=== PATIENT | male | born 1995 | race Two or more races ===

== ENCOUNTER 2023-01-08 11:30 | Emergency (ER) | payer MEDICAID, SELFPAY ==
[2023-01-08 11:35] VITALS: BP 160/91; PULSE 74; RESP 20; TEMP 36.8; O2SAT 98; BMI 28.2
[2023-01-08 11:57] LABS: Basophils Absolute Auto 0.1 10^3/uL (0.0-0.1); Basophils Percent Auto 0.5 % (0.2-2.0); Eosinophils Percent Auto 0.3 % (0.9-7.0); Hematocrit 46.6 % (42.0-54.0); Hemoglobin 15.5 g/dL (14.0-18.0); Immature Granulocytes Abs Auto 0.02 10^3/uL (0.00-0.03); Immature Granulocytes Pct Auto 0.2 % (0.0-0.5); Lymphocytes Absolute Auto 2.3 10^3/uL (1.2-3.8); Lymphocytes Percent Auto 20.8 % (20.5-60.0); Mean Corpuscular HGB Conc 33.3 g/dL (29.9-35.2); Mean Corpuscular Hemoglobin 28.3 pg (25.9-34.0); Mean Platelet Volume 8.8 fL (9.5-13.5); Monocytes Absolute Auto 0.6 10^3/uL (0.3-0.8); Monocytes Percent Auto 5.1 % (1.7-12.0); Neutrophils Absolute Auto 7.9 10^3/uL (1.4-6.5); Neutrophils Percent Auto 73.1 % (43.0-75.0); Platelet Count 378 10^3/uL (150-450); Red Blood Count 5.48 10^6/uL (4.70-6.10); Red Cell Distribution Width 12.4 % (11.0-15.0); White Blood Count 10.8 10^3/uL (4.0-11.0)
[2023-01-08] MEDS: FAMOTIDINE/PF 20 MG/2 ML VIAL IV (12:07)
[2023-01-08] MEDS: KETOROLAC TROMETHAMINE 30 MG/ML VIAL 15 MG IVP (12:07)
[2023-01-08] MEDS: 0.9 % SODIUM CHLORIDE 1,000 ML 1000 ML IV (12:07)
[2023-01-08] MEDS: DICYCLOMINE HCL 20 MG/2 ML VIAL 10 MG IM (12:08)
[2023-01-08] MEDS: PROCHLORPERAZINE 10 MG/2 ML VIAL IV (12:08)
[2023-01-08 12:09] LABS: Alanine Aminotransferase 26 U/L (16-63); Albumin Globulin Ratio 0.9; Albumin Level 4.3 g/dL (3.4-5.0); Alkaline Phosphatase 151 U/L (46-116); Anion Gap 17.3; Aspartate Amino Transferase 21 U/L (15-37); BUN Creatinine Ratio 12.5; Bilirubin Total 0.8 mg/dL (0.2-1.0); Calcium 9.6 mg/dL (8.5-10.1); Carbon Dioxide 24.4 mmol/L (21.0-32.0); Chloride 102 mmol/L (98-107); Estimated GFR (African America >60 (>=60); Estimated GFR (Non-African Ame >60 (>=60); Globulin 4.9 g/dL; Glucose 121 mg/dL (74-106); Potassium 3.7 mmol/L (3.5-5.1); Sodium 140 mmol/L (136-145); Total Protein 9.2 g/dL (6.4-8.2)
--- NOTE | 2023-01-08 13:00 | PC.NURSE ---
After getting pt back in room in w/c [facility] security stands by room to make sure pt remains safe. While this nurse working on another task security comes to nurse station and informs this nurse if pt is not pinked slipped pt wants to sign out AMA. AMA slip taken down to room and asked pt if he is sure this is what he wants to do. Pt states yes Pt informs this nurse again he does not feel well, again this nurse verbalized understanding and informed pt that Dr has ordered more for the nausea and vomiting. Again this nurse asked if pt is sure he wants to leave and pt again states yes . Pt signs AMA form and prior to taking out IV pt given another chance to stay for treatment but pt refused. IV SL removed, [facility] called for pt picker and security took pt to waiting room for picker. A staff member at [facility] informed of pt's treatment and AMA signing via phone conversation.
--- NOTE | 2023-01-08 13:05 | ED_ITS ---
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 Patient is coming to us with nausea vomiting not able to tolerate anything p.o. his last intake of fentanyl was the day before yesterday The patient denies any other drug use he is complaining of generalized abdominal cramping pain associated with nausea and vomiting Related Data Allergies Allergy/AdvReac Type Severity Reaction Status Date / Time No Known Drug Allergies Allergy Verified 01/08/23 11:41 Review of Systems ROS Status of ROS 10 or more systems reviewed and unremarkable except as noted in history and below Exam Narrative Exam Narrative: Nurses notes and vital signs reviewed and patient is not hypoxic. General: Well-appearing and in no apparent distress. Skin: Warm, dry, no pallor noted. No rash. Head: Normocephalic, atraumatic. Neck: Supple, non-tender. Eye: Pupils are equal, round and EOMI. No scleral icterus. Ears, Nose, Mouth, and Throat: TM are clear, no nasal mucosal hypertrophy. Oral mucosa is moist, no posterior oropharynx erythema, uvula is mid-line Cardiovascular: Regular Rate and Rhythm without murmur, gallop or rub. Respiratory: No accessory muscle use or respiratory distress. Lungs are clear to auscultation, no wheezing, rales or rhonchi Chest Wall: no tenderness Back: No midline thoracic or lumbar vertebral tenderness. No CVA tenderness Musculoskeletal: normal ROM, no calf or popliteal tenderness, no lower extremity edema/swelling GI: Abdomen is soft, non-distended. Normal bowel sounds. No masses appreciated. No tenderness to palpation. No rebound, guarding, or rigidity noted. Neurological: A&O x4. No cranial nerve dysfunction observed. No truncal ataxia. Moves all extremities. Sensation intact. Psychiatric: Cooperative and interactive. Normal mood and affect. Constitutional Vital Signs, click to edit/add: Last Vital Signs Temp 98.2 F 01/08/23 11:35 Pulse 74 01/08/23 11:35 Resp 20 01/08/23 11:35 BP 160/91 H 01/08/23 11:35 Pulse Ox 98 01/08/23 11:35 O2 Del Method Room Air 01/08/23 11:56 Course Vital Signs Vital signs: Vital Signs Temperature 98.2 F 01/08/23 11:35 Pulse Rate 74 01/08/23 11:35 Respiratory Rate 20 01/08/23 11:35 Blood Pressure 160/91 H 01/08/23 11:35 Pulse Oximetry 98 01/08/23 11:35 Oxygen Delivery Method Room Air 01/08/23 11:35 Temperature 98.2 F 01/08/23 11:35 Pulse Rate 74 01/08/23 11:35 Respiratory Rate 20 01/08/23 11:35 Blood Pressure 160/91 H 01/08/23 11:35 Pulse Oximetry 98 01/08/23 11:35 Oxygen Delivery Method Room Air 01/08/23 11:56 MDM - Nausea/Vomiting/Diarrhea MDM Narrative Medical decision making narrative: The patient examination is mostly secondary to withdrawal symptoms he did have s ome tremors and he also had nausea and vomiting upon arrival The patient CBC and chemistry showed no acute significant pathology we did provide him initially with Compazine as well as Toradol and Bentyl but he also was provided again with Zofran and Benadryl for the nausea and IV fluid while awaiting the rest of the treatment the patient decided to sign AMA The nurse taking care of the patient provided him with information and the risk factor he is putting himself at upon leaving but the patient understand he wants to leave Lab Data Labs: Lab Results 01/08/23 Range/Units 11:45 WBC 10.8 (4.0-11.0) 10^3/uL RBC 5.48 (4.70-6.10) 10^6/uL Hgb 15.5 (14.0-18.0) g/dL Hct 46.6 (42.0-54.0) % MCV 85.0 (80.0-94.0) fL MCH 28.3 (25.9-34.0) pg MCHC 33.3 (29.9-35.2) g/dL RDW 12.4 (11.0-15.0) % Plt Count 378 (150-450) 10^3/uL MPV 8.8 L (9.5-13.5) fL Neut % (Auto) 73.1 (43.0-75.0) % Lymph % (Auto) 20.8 (20.5-60.0) % [place] % (Auto) 5.1 (1.7-12.0) % Eos % (Auto) 0.3 L (0.9-7.0) % Baso % (Auto) 0.5 (0.2-2.0) % Neut # (Auto) 7.9 H (1.4-6.5) 10^3/uL Lymph # (Auto) 2.3 (1.2-3.8) 10^3/uL [place] # (Auto) 0.6 (0.3-0.8) 10^3/uL Eos # (Auto) 0.0 (0.0-0.7) 10^3/uL Baso # (Auto) 0.1 (0.0-0.1) 10^3/uL Abs Immat Gran (auto) 0.02 (0.00-0.03) 10^3/uL Imm/Tot Granulo (auto) 0.2 (0.0-0.5) % Sodium 140 (136-145) mmol/L Potassium 3.7 (3.5-5.1) mmol/L Chloride 102 (98-107) mmol/L Carbon Dioxide 24.4 (21.0-32.0) mmol/L Anion Gap 17.3 BUN 15.0 (7.0-18.0) mg/dL Creatinine 1.20 (0.70-1.30) mg/dL Est GFR ( Amer) >60 (>=60) Est GFR (Non-Af Amer) >60 (>=60) BUN/Creatinine Ratio 12.5 Glucose 121 H (74-106) mg/dL Calcium 9.6 (8.5-10.1) mg/dL Total Bilirubin 0.8 (0.2-1.0) mg/dL AST 21 (15-37) U/L ALT 26 (16-63) U/L Alkaline Phosphatase 151 H (46-116) U/L Total Protein 9.2 H (6.4-8.2) g/dL Albumin 4.3 (3.4-5.0) g/dL Globulin 4.9 g/dL Albumin/Globulin Ratio 0.9 Lipase 35.0 (16.0-77.0) U/L Discharge Plan Discharge Chief Complaint: Nausea/Vomiting/Diarrhea Clinical Impression: Opiate withdrawal Patient Disposition: Left Against Medical Advice Time of Disposition Decision: 13:07 Stand Alone Forms: Portal Instructions Referrals: DARLINE DUARTE [Primary Care Provider] - 1 week
== END 2023-01-08 13:15 | disposition left against medical advice (07) ==
PROVIDERS: Emergency Provider Emergency Medicine; PCP Family Medicine
DX: F11.23 Opioid dependence with withdrawal (principal); Z53.29 Procedure and treatment not carried out because of patient's decision for other reasons
CPT/HCPCS: 36415; 80053; 83690; 85025; 96372; 96374; 96375; 99284; J0500